=== PATIENT | male | born 1940 | race Caucasian/White ===

== ENCOUNTER 2016-12-11 17:22 | Emergency (ER) | payer MEDICARE ==
[~2016-12-11] VITALS: Ht 167.6 cm; Wt 72.0 kg
[2016-12-11 17:36] VITALS: BP 131/74; PULSE 120; RESP 18; TEMP 98.7; O2SAT 94
--- NOTE | 2016-12-11 17:36 | PD ---
HPI . Intoxication Chief Complaint: Alcohol Time Seen by Provider: 17:30 Travel History International Travel<30 days: No Contact w/Intl Traveler<30days: No History of Present Illness HPI Patient is brought to us by [facility] with the chief complaint of being too drunk to sit or stand. The patient reports that he just had a little bit to drink today. He denies any complaints whatsoever. He denies any injuries. EMS reports no known injuries. [facility] Social History Tobacco Use: No Review of Systems Except as stated in HPI: all other systems reviewed are Neg Neurologic: Positive: Slurred Speech Psychiatric: Positive: Substance Abuse Physical Exam Narrative GENERAL: Patient is awake and pleasantly intoxicated. SKIN: Warm and dry. HEAD: Atraumatic. Normocephalic. EYES: Pupils equal and round. Extraocular movements are intact. NECK: Trachea midline. Neck is supple. CARDIOVASCULAR: Regular rate and rhythm. RESPIRATORY: No accessory muscle use. MUSCULOSKELETAL: No obvious deformities. No edema. NEUROLOGICAL: Awake and alert. No obvious cranial nerve deficits. Motor grossly within normal limits. Normal speech. PSYCHIATRIC: Appropriate mood and affect; insight and judgment normal. [facility] Medical Decision Making Medical Screen Exam Complete: Yes Emergency Medical Condition: Yes Differential Diagnosis Differential diagnosis of altered mental status includes but is not limited to infection, electrolyte abnormality, neurological event, intoxication Narrative Course Patient is brought to us via [facility] for safe keeping due to alcohol intoxication. The patient has no complaints. No evidence of injury. He will be allowed to sleep here until he leydi up. Diagnosis Primary Impression: Acute alcohol intoxication Qualified Code: F10.920 - Acute alcohol intoxication, uncomplicated Patient Instructions: Alcohol Intoxication (DC) Disposition: 01 DISCHARGE HOME Condition: Stable Ana Cuevas MD Dec 11, 2016 17:36
== END 2016-12-11 19:09 | disposition left against medical advice (07) ==
LOC: NEPD 17:22
DX: F10.920 Alcohol use, unspecified with intoxication, uncomplicated (principal)
CPT/HCPCS: 99283